=== PATIENT | male | born 1980 | race African-American/Black ===

== ENCOUNTER 2017-03-26 09:29 | Emergency (ER) | payer SELFPAY ==
[~2017-03-26] VITALS: Ht 185.4 cm; Wt 79.4 kg
[2017-03-26 09:38] VITALS: BP 145/96
[2017-03-26] MEDS ORDERED: metroNIDAZOLE 500 MG TABLET PO ONE (10:15)
[2017-03-26] MEDS ORDERED: cefTRIAXone IM 250 MG VIAL IM ONE (10:15)
[2017-03-26] MEDS ORDERED: AZITHROMYCIN 250 MG TABLET. PO ONE (10:15)
--- NOTE | 2017-03-26 10:29 | PHYS DOC ---
Past Medical History Past Medical History: No Pertinent History Past Surgical History: Other Additional Past Surgical Histo: HERNIA REPAIR Alcohol Use: Occasionally Drug Use: None Adult General Chief Complaint Chief Complaint: PENIS PROBLEM HPI HPI Patient is a 36 year old male who presents with penile discharge for couple days. Patient states the girlfriend stated she is being treated for UTI and patient is concerned the girlfriend is cheating. Review of Systems Review of Systems Constitutional: Denies fever or chills [] Eyes: Denies change in visual acuity, redness, or eye pain [] HENT: Denies nasal congestion or sore throat [] GI: Denies abdominal pain, nausea, vomiting, bloody stools or diarrhea [] : penile discharge Musculoskeletal: Denies back pain or joint pain [] Integument: Denies rash or skin lesions [] Neurologic: Denies headache, focal weakness or sensory changes [] Endocrine: Denies polyuria or polydipsia [] Current Medications Current Medications Current Medications Medications (Trade) Dose Ordered Sig/Scottie Start Time Stop Time Status Last Admin Dose Admin Azithromycin (Zithromax) 1,000 mg 1X ONCE 03/26/17 10:15 03/26/17 10:17 DC Ceftriaxone Sodium (Rocephin Im) 250 mg 1X ONCE 03/26/17 10:15 03/26/17 10:17 DC Metronidazole (Flagyl) 2,000 mg 1X ONCE 03/26/17 10:15 03/26/17 10:17 DC Allergies Allergies Allergies Coded Allergies Type Severity Reaction Last Updated Verified No Known Drug Allergies 01/22/16 No Physical Exam Physical Exam Constitutional: Well developed, well nourished, no acute distress, non-toxic appearance. [] HENT: Normocephalic, atraumatic, bilateral external ears normal, oropharynx moist, no oral exudates, nose normal. [] Abdomen: Bowel sounds normal, soft, no tenderness, no masses, no pulsatile masses. [] Skin: Warm, dry, no erythema, no rash. [] Back: No tenderness, no CVA tenderness. [] Extremities: No tenderness, no cyanosis, no clubbing, ROM intact, no edema. [] Neurologic: Alert and oriented X 3, normal motor function, normal sensory function, no focal deficits noted. [] Psychologic: Affect normal, judgement normal, mood normal. [] Current Patient Data Vital Signs Vital Signs Date Time Temp Pulse Resp B/P (MAP) Pulse Ox O2 Delivery O2 Flow Rate FiO2 03/26/17 09:38 98.7 61 18 99 Room Air 98.7 EKG EKG [] Radiology/Procedures Radiology/Procedures [] Course & Med Decision Making Course & Med Decision Making Pertinent Labs and Imaging studies reviewed. (See chart for details) Patient is in the ED with STD concern. He has penis discharge for a couple days. Urine was sent to lab for cultures. Patient was given azithromycin, Flagyl and Rocephin. He was educated on safe sex practices especially the need to use protection at all times. Recommended he contacts his partners and let them know he was treated for STDs and ask them to seek treatment too. Dragon Disclaimer Dragon Disclaimer This electronic medical record was generated, in whole or in part, using a voice recognition dictation system. Departure Departure Impression: Primary Impression: Concern about STD in male without diagnosis Disposition: 01 HOME, SELF-CARE Condition: STABLE Referrals: NO PCP (PCP) Follow-up with the health department for further STD concerns Patient Instructions: Sexually Transmitted Disease Additional Instructions: You were seen for possible sexually transmitted disease. You were treated in the ED for most common STDs including Trichomonas, Chlamydia, and gonorrhea. We will call you in the next 3-7 days if your results are positive. We do not call people if the results are negative. We highly recommend you use protection at all times. Please contact all your sex partners, let them know you treated for STDs and ask them to seek treatment too. MIGUEL A GARAY APRN Mar 26, 2017 10:29
[2017-03-26 10:51] LABS: BILIRUBIN,URINE NEGATIVE (NEG); GLUCOSE,URINE NEGATIVE (NEG); NITRITE,URINE NEGATIVE (NEG); PH,URINE 6.5; PROTEIN,URINE NEGATIVE (NEG-TRACE)
[2017-03-26 10:54] LABS: SQUAMOUS EPITHELIAL CELL,UR FEW /LPF
[2017-03-26 10:55] LABS: BACTERIA,URINE FEW /HPF (0-FEW)
== END 2017-03-26 11:00 | disposition home or self-care (01) ==
LOC: ER 09:29
DX: Z20.2 Contact with and (suspected) exposure to infections with a predominantly sexual mode of transmission (principal); R36.9 Urethral discharge, unspecified; Z98.890 Other specified postprocedural states
CPT/HCPCS: 81001; 87491; 87591; 96372; 99284; J0696; Q0144

== ENCOUNTER 2017-04-29 20:22 | Emergency (ER) | payer SELFPAY ==
[~2017-04-29] VITALS: Ht 180.3 cm; Wt 80.3 kg
[2017-04-29 21:45] VITALS: BP 111/72
[2017-04-29] MEDS ORDERED: LIDOCAINE 1% PF 2 ML VIAL. ONE (21:51)
--- NOTE | 2017-04-29 21:51 | PHYS DOC ---
Past Medical History Past Medical History: No Pertinent History Past Surgical History: Other Additional Past Surgical Histo: HERNIA REPAIR Alcohol Use: Occasionally Drug Use: None Adult General Chief Complaint Chief Complaint: PAIN ON URINATION HPI HPI Patient is a 36 year old M who presents with STD exposure. Patient states his girlfriend was tightness or chlamydia who he has been having unprotected sex with and now is complaining of pain with urination. Patient denies any dysuria. Patient denies any other symptoms. Patient denies fevers. Patient denies chest pain or shortness of breath. Review of Systems Review of Systems GEN: Denies fevers, chills, sweats HEENT: Denies blurred vision, sore throat CV: Denies chest pain RESP: Denies shortness of air, cough GI: Denies n/v/d NEURO: Denies confusion, dizziness MSK: Denies weakness, joint pain/swelling : Dysuria Current Medications Current Medications Current Medications Medications (Trade) Dose Ordered Sig/Scottie Start Time Stop Time Status Last Admin Dose Admin Azithromycin (Zithromax) 1,000 mg 1X ONCE 04/29/17 22:00 04/29/17 22:01 DC Ceftriaxone Sodium (Rocephin Im) 250 mg 1X ONCE 04/29/17 22:00 04/29/17 22:01 DC 04/29/17 22:10 250 MG Lidocaine HCl (Xylocaine-Mpf 1% Vial) 2 ml STK-MED ONCE 04/29/17 21:51 04/29/17 21:52 DC Allergies Allergies Allergies Coded Allergies Type Severity Reaction Last Updated Verified No Known Drug Allergies 01/22/16 No Physical Exam Physical Exam GEN.: No apparent distress. Alert and oriented. HEENT: Head is normocephalic, atraumatic NECK: Supple. LUNGS: CTAB. HEART: RRR, S1, S2 present. Peripheral pulses intact ABDOMEN: Soft, nontender. Positive bowel sounds. : No discharge, no swollen testicles, no lesions seen EXTREMITIES: Without any cyanosis. NEUROLOGIC: Normal speech, normal tone PSYCHIATRIC: Normal affect, normal mood. SKIN: No ulcerations Current Patient Data Vital Signs Vital Signs Date Time Temp Pulse Resp B/P (MAP) Pulse Ox O2 Delivery O2 Flow Rate FiO2 04/29/17 21:45 54 21 111/72 (85) 98 Room Air 04/29/17 21:11 97.8 97.8 Lab Values Laboratory Tests Test 04/29/17 21:36 Urine Collection Type Unknown Urine Color Brittani Urine Clarity Clear Urine pH 5.0 Urine Specific [place] >=1.030 Urine Protein Negative mg/dL (NEG-TRACE) Urine Glucose (UA) Negative mg/dL (NEG) Urine Ketones (Stick) Negative mg/dL (NEG) Urine Blood Negative (NEG) Urine Nitrite Negative (NEG) Urine Bilirubin Small (NEG) Urine Urobilinogen Dipstick 1.0 mg/dL (0.2 mg/dL) Urine Leukocyte Esterase Negative (NEG) Urine RBC 0 /HPF (0-2) Urine WBC 1-4 /HPF (0-4) Urine Squamous Epithelial Cells Few /LPF Urine Bacteria 0 /HPF (0-FEW) Urine Mucus Mod /LPF EKG EKG [] Radiology/Procedures Radiology/Procedures [] Course & Med Decision Making Course & Med Decision Making Pertinent Labs and Imaging studies reviewed. (See chart for details) ED course: Patient was seen and examined emergency room UA along with GC chlamydia PCR was ordered and patient was treated prophylactically for ST exposure for chlamydia and gonorrhea with 250 mg Rocephin IM and 1 g of Zithromax by mouth MDM: After reviewing the chart, CC/HPI/PMH, physical exam, [lab results], I do not believe the patient has severe bacterial infection warranting further workup and /or admission at this time. Patient was treated prophylactically for an STD exposure. It was recommended patient follow-up with health department for further testing for HIV and hep B and hep C. Patient is stable for discharge. Additional verbal discharge instructions were provided to the patient and that if symptoms get worse or any new symptoms arise that are worrisome to the patient he is to return to the emergency room immediately [] Dragon Disclaimer Dragon Disclaimer This electronic medical record was generated, in whole or in part, using a voice recognition dictation system. Departure Departure Impression: Primary Impression: STD exposure Additional Impression: Dysuria Disposition: 01 HOME, SELF-CARE Condition: IMPROVED Referrals: NO PCP (PCP) Patient Instructions: Safe Sex Additional Instructions: Please follow up with her family doctor next one to days or the health department for further testing such as HIV, hep B, hep C Problem Qualifiers GEMA DHILLON DO Apr 29, 2017 21:51
[2017-04-29 21:57] LABS: BILIRUBIN,URINE SMALL (NEG); GLUCOSE,URINE NEGATIVE (NEG); NITRITE,URINE NEGATIVE (NEG); PROTEIN,URINE NEGATIVE (NEG-TRACE)
[2017-04-29] MEDS ORDERED: cefTRIAXone IM 250 MG VIAL IM ONE (22:00)
[2017-04-29] MEDS ORDERED: AZITHROMYCIN 250 MG TABLET. PO ONE (22:00)
[2017-04-29 22:08] LABS: BACTERIA,URINE 0 /HPF (0-FEW); RBC,URINE 0 /HPF (0-2); SQUAMOUS EPITHELIAL CELL,UR FEW /LPF
== END 2017-04-29 22:44 | disposition home or self-care (01) ==
LOC: ER 20:22
DX: Z20.2 Contact with and (suspected) exposure to infections with a predominantly sexual mode of transmission (principal); R30.0 Dysuria
CPT/HCPCS: 81001; 96372; 99284; J0696; 87491; 87591

== ENCOUNTER 2017-11-02 08:43 | Emergency (ER) | payer SELFPAY ==
[2017-11-02] MEDS: AZITHROMYCIN 250 MG TABLET. PO ×2 (09:48)
[2017-11-02] MEDS: ONDANSETRON ODT 4 MG TAB.RAPDIS. PO ×2 (09:48)
[2017-11-02] MEDS: metroNIDAZOLE 500 MG TABLET PO ×2 (09:48)
[2017-11-02] MEDS: cefTRIAXone IM 250 MG VIAL IM ×2 (09:49)
== END 2017-11-02 10:04 | disposition home or self-care (01) ==
LOC: ER 08:43
DX: Z11.3 Encounter for screening for infections with a predominantly sexual mode of transmission (principal); B35.4 Tinea corporis; Z20.89 Contact with and (suspected) exposure to other communicable diseases
CPT/HCPCS: 87491; 87591; 96372; 99284; J0696; Q0144; Q0162

== ENCOUNTER 2018-01-04 12:09 | Emergency (ER) | payer SELFPAY ==
[2018-01-04 13:49] LABS: BILIRUBIN,URINE NEGATIVE (NEG); COLOR,URINE AMBER; GLUCOSE,URINE NEGATIVE (NEG); NITRITE,URINE NEGATIVE (NEG); PROTEIN,URINE NEGATIVE (NEG-TRACE)
[2018-01-04 13:55] LABS: BARBITURATES NEG (NEG); BENZODIAZEPINES NEG (NEG); CANNABINOIDS POS (NEG); COCAINE POS (NEG); METHADONE NEG (NEG); OPIATES NEG (NEG); PHENCYCLIDINE POS (NEG)
[2018-01-04] MEDS: IV NORMAL SALINE 1000ML BAG 1,000 ML IV (13:56)
[2018-01-04 13:59] LABS: AMPHETAMINE/METHAMPHETAMINE NEG (NEG); BACTERIA,URINE 0 /HPF (0-FEW); CLARITY,URINE HAZY; ETHANOL, URINE NEG (NEG); RBC,URINE 0 /HPF (0-2); SQUAMOUS EPITHELIAL CELL,UR OCC /LPF; WBC,URINE OCC /HPF (0-4)
[2018-01-04 14:01] LABS: ADD MAN DIFF? NO
[2018-01-04 14:09] LABS: BASO # 0.1 x10^3/uL (0.0-0.2); BASO % 1 % (0-3); EOS # 0.1 x10^3/uL (0.0-0.7); EOS % 2 % (0-3); HEMATOCRIT 43.6 % (39.0-53.0); HEMOGLOBIN 14.8 g/dL (13.0-17.5); LYMPH # 2.1 x10^3/uL (1.0-4.8); LYMPH % 28 % (24-48); MEAN CORPUSCULAR HEMOGLOBIN 31 pg (25-35); MEAN CORPUSCULAR HGB CONC 34 g/dL (31-37); MEAN CORPUSCULAR VOLUME 93 fL (79-100); MONO # 0.7 x10^3/uL (0.0-1.1); MONO % 9 % (0-9); NEUT # 4.6 x10^3uL (1.8-7.7); NEUT % 61 % (31-73); PLATELET COUNT 163 x10^3/uL (140-400); RED BLOOD COUNT 4.71 x10^6/uL (4.30-5.70); RED CELL DISTRIBUTION WIDTH 14.3 % (11.5-14.5); WHITE BLOOD COUNT 7.5 x10^3/uL (4.0-11.0)
[2018-01-04 14:19] LABS: INR 1.1 (0.8-1.1); PROTHROMBIN TIME PATIENT 13.3 SEC (11.7-14.0)
[2018-01-04 14:32] LABS: ANION GAP 9 (6-14); BLOOD UREA NITROGEN 11 mg/dL (8-26); CALCIUM 9.2 mg/dL (8.5-10.1); CARBON DIOXIDE 29 mmol/L (21-32); CHLORIDE 102 mmol/L (98-107); GFR 101.7; GLUCOSE 101 mg/dL (70-99); POTASSIUM 3.7 mmol/L (3.5-5.1); SODIUM 140 mmol/L (136-145)
[2018-01-04 14:38] LABS: NT-PRO BNP 105 pg/mL (0-124); THYROID STIM HORMONE (TSH) 0.416 uIU/mL (0.358-3.74); TROPONINI < 0.017 ng/mL (0.000-0.055)
[2018-01-04 14:38] LABS: CREATINE KINASE 175 U/L (39-308)
[2018-01-04 14:39] LABS: CKMB MASS < 0.5 ng/mL (0.0-3.6)
[2018-01-04 14:40] LABS: ALBUMIN 3.7 g/dL (3.4-5.0); ALK PHOS 64 U/L (46-116); ALT (SGPT) 16 U/L (16-63); AST (SGOT) 16 U/L (15-37); DIRECT BILIRUBIN 0.2 mg/dL (0.0-0.2); LIPASE 130 U/L (73-393); MAGNESIUM 2.1 mg/dL (1.8-2.4); TOTAL BILIRUBIN 1.3 mg/dL (0.2-1.0); TOTAL PROTEIN 7.1 g/dL (6.4-8.2)
[2018-01-04] MEDS: cefTRIAXone IM 250 MG VIAL IM (15:51)
[2018-01-04] MEDS: AZITHROMYCIN 250 MG TABLET. PO (15:51)
== END 2018-01-04 15:55 | disposition home or self-care (01) ==
LOC: ER 12:09
DX: Z11.3 Encounter for screening for infections with a predominantly sexual mode of transmission (principal)
CPT/HCPCS: 36415; 71045; 80048; 80076; 80307; 81001; 82553; 83690; 83735; 83880; 84443; 84484; 85025; 85610; 87491; 87591; 93005; 96360; 96361; 96372; 99285-25; J0696; J7030; Q0144

== ENCOUNTER 2018-03-27 07:40 | Emergency (ER) | payer SELFPAY ==
[2018-03-27] MEDS: ONDANSETRON PF 4 MG/2 ML VIAL. IV (08:16)
[2018-03-27] MEDS: IV NORMAL SALINE 1000ML BAG 1,000 ML IV (08:17)
[2018-03-27 08:23] LABS: ADD MAN DIFF? NO
[2018-03-27 08:26] LABS: BASO # 0.1 x10^3/uL (0.0-0.2); BASO % 1 % (0-3); EOS # 0.1 x10^3/uL (0.0-0.7); EOS % 1 % (0-3); HEMATOCRIT 46.1 % (39.0-53.0); LYMPH # 1.5 x10^3/uL (1.0-4.8); LYMPH % 19 % (24-48); MEAN CORPUSCULAR HEMOGLOBIN 33 pg (25-35); MEAN CORPUSCULAR HGB CONC 35 g/dL (31-37); MEAN CORPUSCULAR VOLUME 94 fL (79-100); MONO # 0.7 x10^3/uL (0.0-1.1); MONO % 9 % (0-9); NEUT # 5.4 x10^3uL (1.8-7.7); NEUT % 71 % (31-73); PLATELET COUNT 179 x10^3/uL (140-400); RED BLOOD COUNT 4.91 x10^6/uL (4.30-5.70); RED CELL DISTRIBUTION WIDTH 13.8 % (11.5-14.5); WHITE BLOOD COUNT 7.7 x10^3/uL (4.0-11.0)
[2018-03-27 08:42] LABS: ANION GAP 3 (6-14); BLOOD UREA NITROGEN 12 mg/dL (8-26); CALCIUM 9.4 mg/dL (8.5-10.1); CARBON DIOXIDE 30 mmol/L (21-32); CHLORIDE 102 mmol/L (98-107); CREATININE 1.3 mg/dL (0.7-1.3); GFR 75.2; GLUCOSE 86 mg/dL (70-99); POTASSIUM 3.8 mmol/L (3.5-5.1); SODIUM 135 mmol/L (136-145)
[2018-03-27 08:49] LABS: ALK PHOS 67 U/L (46-116); ALT (SGPT) 25 U/L (16-63); AST (SGOT) 22 U/L (15-37); DIRECT BILIRUBIN 0.2 mg/dL (0.0-0.2); LIPASE 116 U/L (73-393); TOTAL BILIRUBIN 1.3 mg/dL (0.2-1.0); TOTAL PROTEIN 7.4 g/dL (6.4-8.2)
[2018-03-27 09:08] LABS: BILIRUBIN,URINE NEGATIVE (NEG); CLARITY,URINE CLEAR; COLOR,URINE YELLOW; GLUCOSE,URINE NEGATIVE (NEG); NITRITE,URINE NEGATIVE (NEG); PH,URINE 6.5; PROTEIN,URINE NEGATIVE (NEG-TRACE); UROBILINOGEN,URINE 0.2 mg/dL (0.2 mg/dL)
[2018-03-27 09:33] LABS: SQUAMOUS EPITHELIAL CELL,UR OCC /LPF
[2018-03-27 09:34] LABS: BACTERIA,URINE 0 /HPF (0-FEW); RBC,URINE 0 /HPF (0-2); WBC,URINE 0 /HPF (0-4)
== END 2018-03-27 10:56 | disposition home or self-care (01) ==
LOC: ER 07:40
DX: R11.10 Vomiting, unspecified (principal); R10.13 Epigastric pain
CPT/HCPCS: 36415; 80048; 80076; 81001; 83690; 85025; 96361; 96374; 99284-25; J2405; J7030